=== PATIENT | female | born 1985 | race Caucasian/White ===

== ENCOUNTER 2024-10-23 13:37 | Emergency (ER) | payer MEDICAID ==
[~2024-10-23] VITALS: Ht 157.5 cm; Wt 52.0 kg
[2024-10-23 13:42] VITALS: BP 100/68; PULSE 74; RESP 15; TEMP 36.4; O2SAT 98
[2024-10-23 15:22] LABS: CHLORIDE 105 mEq/L (98-107); SODIUM 145 mEq/L (136-145)
[2024-10-23 15:23] LABS: BASOPHILS % 1.1 % (0.0-2.0); CARBON DIOXIDE 29 mEq/L (21-32); EOSINOPHILS % 0.6 % (0.0-5.0); HEMOGLOBIN. 12.9 g/dL (12.0-16.0); LYMPHOCYTES % 47.1 % (20.0-50.0); MEAN CORPUSCULAR HEMOGLOBIN 28.9 pg (28.0-32.0); MEAN CORPUSCULAR HGB CONC 32.3 g/dL (31.0-37.0); MEAN CORPUSCULAR VOLUME 89.5 fL (81.0-99.0); MEAN PLATELET VOLUME 7.1 fl (7.4-10.4); NEUTROPHILS % 47.2 % (40.0-76.0); PLATELET 294 x1000/uL (130-400); RED BLOOD CELL COUNT 4.47 mill/uL (4.2-5.4); RED CELL DISTRIBUTION WIDTH 18.5 % (11.6-14.6); WHITE BLOOD COUNT 4.5 x1000/uL (4.5-11.0)
[2024-10-23 15:24] LABS: CALCIUM 8.8 mg/dL (8.7-10.4)
[2024-10-23 15:28] LABS: CREATININE 0.7 mg/dL (0.6-1.0); GLUCOSE 83 mg/dL (70-105)
[2024-10-23 15:29] LABS: UREA NITROGEN BLOOD 8 mg/dL (9-23)
[2024-10-23] MEDS: ACETAMINOPHEN 325MG TABLET PO ONE (15:44)
[2024-10-23 16:12] LABS: CLARITY URINE CLEAR (CLEAR); COLOR URINE YELLOW (YELLOW); GLUCOSE URINE NEGATIVE (NEGATIVE); KETONES URINE NEGATIVE (NEGATIVE); LEUKOCYTE ESTERASE URINE NEGATIVE (NEGATIVE); NITRITE URINE NEGATIVE (NEGATIVE); OCCULT BLOOD URINE NEGATIVE (NEGATIVE); PROTEIN URINE NEGATIVE (NEGATIVE); SPECIFIC GRAVITY URINE 1.008 (1.005-1.030); UROBILINOGEN URINE 0.2 E.U./dL (0.2-1.0)
[2024-10-23 16:18] LABS: HCG SCREEN NEGATIVE
[2024-10-23] MEDS ORDERED: TOPUD MT (17:21)
== END 2024-10-23 17:59 | disposition home or self-care (01) ==
LOC: ER 13:37
DX: R51.9 Headache, unspecified (principal); I10 Essential (primary) hypertension
CPT/HCPCS: 36415; 80048; 81003; 84703; 85025; 99283